=== PATIENT | female | born 1940 | race Caucasian/White ===

== ENCOUNTER 2022-01-02 17:50 | Emergency (ER) | payer MEDICARE, MEDICAID ==
[~2022-01-02] VITALS: Ht 152.4 cm; Wt 52.2 kg
[2022-01-02] MEDS ORDERED: LIDOCAINE 2%-EPI 1:100,000 20 ML VIAL ONE (18:43)
[2022-01-02] MEDS ORDERED: LIDOCAINE 2%-EPI 1:100,000 20 ML VIAL IJ ONE (18:45)
[2022-01-02 18:55] LABS: HEMATOCRIT 36.2 % (31.2-41.9); MEAN CORPUSCULAR HEMOGLOBIN 29.8 uug (24.7-32.8); MEAN CORPUSCULAR VOLUME 89.8 fL (75.5-95.3); PLATELET COUNT (AUTO) 276 K/uL (179-408)
[2022-01-02 19:00] LABS: CREATININE 0.8 mg/dL (0.6-1.3); MAGNESIUM 2.1 mg/dL (1.8-2.4); POTASSIUM 3.8 mmol/L (3.5-5.1)
[2022-01-02] MEDS ORDERED: POTA8TAB3 PO (19:03)
[2022-01-02] MEDS ORDERED: FURO40TA5 PO (19:03)
[2022-01-02] MEDS ORDERED: OMEG-83 PO (19:03)
[2022-01-02] MEDS ORDERED: DENO60DI SQ (19:03)
[2022-01-02] MEDS ORDERED: ASPI81TA31 PO (19:03)
[2022-01-02] MEDS ORDERED: DOCU-141 PO (19:03)
[2022-01-02] MEDS ORDERED: ATOR40TA PO (19:03)
[2022-01-02] MEDS ORDERED: LOSA25TA27 PO (19:03)
[2022-01-02] MEDS ORDERED: FLUT1DIS28 INH (19:03)
[2022-01-02] MEDS ORDERED: DONE5TAB34 PO (19:03)
[2022-01-02] MEDS ORDERED: MULT-1200 PO (19:03)
[2022-01-02] MEDS ORDERED: METO25TA6 PO (19:03)
--- NOTE | 2022-01-02 19:04 | NUR ---
PT IS IN ROOM #1A. DR ROSSI EVALUATED THE PT.
--- NOTE | 2022-01-02 19:15 | NUR ---
Offered ice pack to patient and instructed to place on affected area. Will continue to monitor closely.
--- NOTE | 2022-01-02 19:45 | NUR ---
Nose pack with lidocaine + epinephrine applied at left nostril c/o Dr Adams. Will continue to monitor closely.
--- NOTE | 2022-01-02 21:20 | NUR ---
Called Tiara (daughter) to pickling drum operator her mom, however, unable to drive. She mentioned that she will call her daughter or niece to pick her up here. Updated patient regarding transportation.
--- NOTE | 2022-01-02 22:08 | NUR ---
Called Erica (daughter) report given and confirmed to diamond picker her mom. Updated patient regarding for her transportation.
--- NOTE | 2022-01-02 22:37 | NUR ---
Patient was picked up by Erica (daughter) via private vehicle and discharged to [place] [id number] in stable condition. Ambulated to bathroom with steady gait. Written and verbal after care instructions given. Patient verbalizes understanding of instructions. Stressed follow up or return to ER for worsening s/s.
[2022-01-02 22:45] VITALS: BP 135/80
== END 2022-01-02 22:45 | disposition still patient (30) ==
LOC: ER 17:50
DX: R04.0 Epistaxis (principal); I10 Essential (primary) hypertension; Z95.1 Presence of aortocoronary bypass graft; Z95.2 Presence of prosthetic heart valve; Z79.899 Other long term (current) drug therapy
CPT/HCPCS: 30901; 36415; 83735; 85025; 85730; A4663